=== PATIENT | female | born 1955 | race Caucasian/White ===

== ENCOUNTER → 2017-08-08 08:45 | Day surgery (SDC) | payer MEDICARE ==
[~2017-08-08] VITALS: Ht 152.4 cm; Wt 68.2 kg
[~2017-08-08 08:45] MED LIST: BAYER CHEWABLE81 MG PO; CO Q-10100 MG PO; COZAAR25 MG PO; CYCLOBENZAPRINE10 MG PO; CYMBALTA30 MG PO; DEXILANT60 MG PO; GLUCOPHAGE500 MG PO; MACROBID100 MG PO; METAMUCIL PACKE1 PKT PO; NEURONTIN 300300 MG PO; NORVASC2.5 MG PO; PREDNISONE5 MG PO
[2017-08-08 10:38] LABS: BASOPHILS 0.8 % (0-2); EOSINOPHILS 3.6 % (0-7); HEMATOCRIT 42.6 % (36.0-48.0); HEMOGLOBIN 14.2 g/dL (12-16); IMMATURE GRANULOCYTES 1.5 % (0-5); LYMPHOCYTES 32.8 % (15-50); MCH 31.3 pg (26.0-34.0); MCHC 33.3 g/dL (31.0-37.0); MCV 93.8 fL (80.0-100.0); MEAN PLATELET VOLUME 9.3 fL (7.4-10.4); MONOCYTES 10.8 % (2-11); NEUTROPHILS 50.5 % (40-80); PLATELET COUNT 268 10x3/uL (130-400); RBC 4.54 10x6/uL (4.00-5.40); RDW 12.9 % (11.5-14.5); WBC 8.5 10x3/uL (4.8-10.8)
[2017-08-08 11:08] LABS: CALC OSMOLALITY 282 mosm/kg (275-300); CALCIUM 8.8 mg/dL (8.5-10.1); CARBON DIOXIDE 28.6 mmol/L (21.0-32.0); CHLORIDE - SERUM 103 mmol/L (98-107); CREATININE - SERUM 0.5 mg/dL (0.6-1.3); GLUCOSE 151 mg/dL (74-106); POTASSIUM - SERUM 3.1 mmol/L (3.5-5.1); SODIUM 139 mmol/L (136-145); UREA NITROGEN 17 mg/dL (7-18); eGFR NON AFRICAN AMERICAN > 90 mL/min (90-120)
[2017-08-08 12:34] VITALS: BP 123/70; Ht 152.4 cm; Wt 68.2 kg
--- NOTE | 2017-08-08 13:50 | NUR ---
1330-RECD FROM GI LAB. DR ENGLISH IN TO REPORT FINDINGS TO PATIENT AND FAMILY. 1345-FULL LIQUIDS SERVED.
--- NOTE | 2017-08-08 15:01 | NUR ---
1400-IV D/C AND DRESSING. 1420-DISCHARGE INSTRUCTIONS REVIEWED. 1430-D/C HOME VIA WHEELCHAIR
--- NOTE | 2017-08-09 11:02 | OP ---
PATIENT NAME: DUYEN NASH MEDICAL RECORD: [id number] :55 LOCATION:[facility] ADMISSION DATE: SURGEON: JAMIL ENGLISH DO DATE OF OPERATION: 08/08/2017 PROCEDURE: EGD with biopsies. INDICATIONS FOR PROCEDURE: Epigastric abdominal pain, dysphagia, heartburn, hunger pain. SCOPE: Olympus video gastroscope. MEDICATIONS: Propofol 200 mg IV per anesthesia. ESTIMATED BLOOD LOSS: Minimal. COMPLICATIONS: None. FINDINGS: Informed consent was given. The patient was made comfortable with the above medication. After reaching an adequate level of sedation by slow IV push, the patient was placed on her left side. The endoscope was then advanced under direct visualization through the mouth to the third portion of the duodenum. The endoscope was slowly withdrawn as the mucosa was carefully examined. The upper, middle, and lower thirds of the esophagus appeared normal without evidence of rings, strictures, erosions, or ulcerations. At the GE junction, there was evidence of acid reflux (LA class A). The endoscope was advanced beyond the GE junction into the stomach and retroflexed to view the cardia, where a sliding-type hiatal hernia was present. The entire stomach revealed some erythema, granularity, and congestion consistent with gastritis. At the pylorus, there was some inflammatory granulation tissue present. Random biopsies were taken from this site as well as the remainder of the stomach to submit for histology and to rule out H. pylori. The endoscope was advanced beyond the pylorus into the duodenum where the entire exam and duodenum appeared normal. The endoscope was then withdrawn from the patient. Upon withdrawal, the hypopharynx and vocal cords were evaluated. There was no erythema or other abnormalities visualized involving the vocal cords endoscopically. The scope was then completely withdrawn from the patient. The patient tolerated the procedure well and there were no complications. IMPRESSION: 1. LA class A reflux-induced esophagitis. 2. Sliding-type hiatal hernia. 3. Gastritis by endoscopic appearance with biopsies pending. PLAN AND RECOMMENDATIONS: 1. Discharge home when recovery parameters are met. 2. GERD diet and reflux precautions. 3. Continue current medications. 4. Antacid regimen will consist of Dexilant 60 mg in the morning before eating or drinking as well as Zantac 150 mg p.o. at bedtime and a 10-day trial of Carafate suspension. 5. Consider referral to surgery for antireflux procedure. 6. Proceed with colonoscopy as scheduled. TRANSINT:[id number] Voice Confirmation ID: [id number] DOCUMENT ID: [id number] OPERATIVE REPORT [id number] DUYEN NASH NATHAN A DO at 1102 CC: [id number] DICTATION DATE: 08/08/17 1322 EGG SEPARATOR: 08/08/17 1333 [facility] 08/08/[address] [address]
== END | disposition home or self-care (01) ==
LOC: D.OPS 08:45
PROVIDERS: Anesthesiology
DX: R10.13 Epigastric pain (principal); R13.10 Dysphagia, unspecified; K21.0 Gastro-esophageal reflux disease with esophagitis; K44.9 Diaphragmatic hernia without obstruction or gangrene; F17.200 Nicotine dependence, unspecified, uncomplicated; I10 Essential (primary) hypertension; E11.9 Type 2 diabetes mellitus without complications; Z01.812 Encounter for preprocedural laboratory examination

== ENCOUNTER 2017-09-07 10:50 | Day surgery (SDC) | payer MEDICARE ==
[~2017-09-07] VITALS: Ht 152.4 cm; Wt 70.0 kg
[2017-09-07 11:53] LABS: HEMATOCRIT 43.1 % (36.0-48.0); HEMOGLOBIN 14.8 g/dL (12-16); MCH 31.6 pg (26.0-34.0); MCHC 34.3 g/dL (31.0-37.0); MCV 91.9 fL (80.0-100.0); MEAN PLATELET VOLUME 9.4 fL (7.4-10.4); RBC 4.69 10x6/uL (4.00-5.40); RDW 12.7 % (11.5-14.5); WBC 7.5 10x3/uL (4.8-10.8)
[2017-09-07 12:00] LABS: CALC OSMOLALITY 285 mosm/kg (275-300); CALCIUM 9.4 mg/dL (8.5-10.1); CARBON DIOXIDE 25.3 mmol/L (21.0-32.0); CHLORIDE - SERUM 105 mmol/L (98-107); CREATININE - SERUM 0.6 mg/dL (0.6-1.3); GLUCOSE 159 mg/dL (74-106); POTASSIUM - SERUM 3.7 mmol/L (3.5-5.1); SODIUM 142 mmol/L (136-145); UREA NITROGEN 12 mg/dL (7-18); eGFR NON AFRICAN AMERICAN > 90 mL/min (90-120)
[2017-09-07 12:02] VITALS: BP 125/75; Ht 152.4 cm; Wt 70.0 kg
--- NOTE | 2017-09-08 10:48 | OP ---
PATIENT NAME: DUYEN NASH MEDICAL RECORD: [id number] :55 LOCATION:[facility] ADMISSION DATE: SURGEON: JAMIL ENGLISH DO DATE OF OPERATION: 09/07/2017 PROCEDURE: Colonoscopy. INDICATIONS FOR PROCEDURE: Change in bowel habits and abnormal weight loss as well as hematochezia and lower abdominal pain. SCOPE: Olympus video pediatric colonoscope. MEDICATIONS: Propofol 480 mg IV per anesthesia. WITHDRAWAL TIME: 8 minutes. SCOPE: Olympus video pediatric colonoscope. ESTIMATED BLOOD LOSS: Minimal. COMPLICATIONS: None. FINDINGS: Informed consent was given. The patient was made comfortable with the above medication. After reaching an adequate level of sedation by slow IV push, the patient was placed on her left side. A digital rectal examination was performed and revealed some small external hemorrhoids without evidence of bleeding. The endoscope was then advanced under direct visualization through the rectum to the cecum with visualization of the appendiceal orifice and the ileocecal valve. The scope was slowly withdrawn and mucosa was carefully examined. The prep quality was good. There were no polyps visualized on today's examination. There was some mild diverticulosis involving the left side of the colon. Retroflexion was performed in the rectum with visualization of small grade II internal hemorrhoids. The endoscope was then withdrawn from the patient. The patient tolerated the procedure well and there were no complications. IMPRESSION: 1. Left-sided diverticulosis without evidence of diverticulitis. 2. Internal and external hemorrhoids. 3. Likely irritable bowel syndrome, which is neither constipation or diarrhea predominant. PLAN AND RECOMMENDATIONS: 1. Discharge home when recovery parameters are met. 2. Continue high-fiber diet and supplementation with 2 tablespoons of Metamucil daily. 3. Minimize bulking agents or bowel slowing agents. 4. We will give a trial of Robinul Forte 2 mg p.o. b.i.d. for loose stools or lower abdominal pain. 5. Consider referral to a surgeon to discuss antireflux procedures regarding her continued heartburn and reflux symptoms. 6. Recall colonoscopy in 7-10 years. TRANSINT:[id number] Voice Confirmation ID: [id number] DOCUMENT ID: [id number] OPERATIVE REPORT [id number] DUYEN NASHDRINE JAMIL ENGLISH DO at 104 CC: [id number] DICTATION DATE: 09/07/17 1433 WORD PROCESSING SUPERVISOR: 09/07/17 1526 [facility] 09/07/17 [place] [id number] [place] [id number]
== END 2017-09-07 15:10 | disposition home or self-care (01) ==
LOC: D.OPS 10:50
PROVIDERS: Internal Medicine Gastroenterology
DX: K57.30 Diverticulosis of large intestine without perforation or abscess without bleeding (principal); K64.8 Other hemorrhoids; K64.4 Residual hemorrhoidal skin tags; Z01.812 Encounter for preprocedural laboratory examination